=== PATIENT | female | born 1955 | race Hispanic/Latino ===

== ENCOUNTER 2019-07-15 16:22 | Emergency (ER) | payer OTHER ==
[2019-07-15] MEDS ORDERED: SODIUM CHLORIDE 0.9% 1000ML 1,000 ML IV ONE (16:34)
[2019-07-15] MEDS ORDERED: ONDANSETRON HCL 4 MG/2 ML VIAL ONE (16:49)
[2019-07-15] MEDS ORDERED: KETOROLAC TROMETHAMINE 15MG/ML ONE (16:50)
[2019-07-15 16:53] LABS: BASOPHILS % (AUTO) 0.1 % (0.0-5.0); HEMATOCRIT 43.1 % (36-48); LYMPHOCYTES % (AUTO) 5.1 % (21.0-51.0); MEAN CORPUSCULAR HEMOGLOBIN 29.3 pg (27.0-33.0); MEAN CORPUSCULAR HGB CONC 32.9 g/dL (32.0-36.0); MEAN CORPUSCULAR VOLUME 88.9 fL (79-99); NEUTROPHILS % (AUTO) 90.5 % (40.0-77.0); PLATELET COUNT (AUTO) 235 K/uL (130-400); RED BLOOD CELL COUNT(AUTO) 4.85 MIL/uL (4.00-5.50); RED CELL DISTRIBUTION WIDTH 12.1 % (11.0-15.5)
[2019-07-15 16:54] LABS: APPEARANCE,URINE Clear (CLEAR); BILIRUBIN,URINE Negative (NEGATIVE); COLOR,URINE Yellow (YELLOW); GLUCOSE, URINE (UA) >=1000 mg/dL (NEGATIVE); KETONES,URINE 40 mg/dL (NEGATIVE); LEUKOCYTE ESTERASE ,URINE Negative (NEGATIVE); NITRATE,URINE Positive (NEGATIVE); OCCULT BLOOD,URINE Moderate (NEGATIVE); PH,URINE 5.5 (5.0-8.0); PROTEIN,URINE POS 1+ mg/dL (NEGATIVE)
[2019-07-15 17:05] LABS: POTASSIUM 4.2 mmol/L (3.5-5.1)
[2019-07-15 17:06] LABS: BACTERIA,URINE Many /HPF (None Seen); RBC,URINE None Seen /HPF (0-1)
[2019-07-15 17:08] LABS: INR 0.98 (0.85-1.15); PARTIAL THROMBOPLASTIN TIME 30.8 SEC (26.3-35.5); PROTHROMBIN TIME 10.3 SEC (9.6-11.6)
[2019-07-15 17:10] LABS: ALBUMIN 3.6 g/dL (3.5-5.0); BILIRUBIN,TOTAL 1.7 mg/dL (0.2-1.0); TOTAL PROTEIN, SERUM 7.9 g/dL (6.0-8.3)
[2019-07-15] MEDS ORDERED: CEFTRIAXONE SODIUM 1 GM ONE (17:27)
[2019-07-15] MEDS ORDERED: SODIUM CHLORIDE 0.9% 50 ML IV ONE (17:28)
[2019-07-17] MEDS ORDERED: ONDA-104 PO (16:33)
[2019-07-17] MEDS ORDERED: METF-444 PO (16:33)
[2019-07-17] MEDS ORDERED: LISI10TA7 PO (16:33)
[2019-07-17] MEDS ORDERED: CEFU500T67 PO (16:33)
[2019-07-20] MEDS ORDERED: METF-444 PO (12:34)
[2019-07-20] MEDS ORDERED: LISI10TA7 PO (12:34)
== END 2019-07-15 18:32 | disposition home or self-care (01) ==
LOC: EDH 16:22
DX: N10 Acute pyelonephritis (principal); E11.9 Type 2 diabetes mellitus without complications; I10 Essential (primary) hypertension
CPT/HCPCS: 36415; 74176; 80053; 81001; 83690; 85025; 85610; 85730; 93005; 96374; 96375; 99285; J0696; J1885; J2405; J7030

== ENCOUNTER 2019-11-19 05:24 | Inpatient (IN) | payer OTHER ==
[~2019-11-19] VITALS: Ht 165.1 cm; Wt 110.0 kg
[~2019-11-19 05:24] MED LIST: LISI10TA7 PO; METF-444 PO
[2019-11-19 05:51] LABS: APPEARANCE,URINE Clear (CLEAR); BILIRUBIN,URINE Negative (NEGATIVE); COLOR,URINE Yellow (YELLOW); GLUCOSE, URINE (UA) Negative (NEGATIVE); KETONES,URINE Negative (NEGATIVE); LEUKOCYTE ESTERASE ,URINE Trace (NEGATIVE); NITRATE,URINE Negative (NEGATIVE); OCCULT BLOOD,URINE Nonhemolyzed Trace (NEGATIVE); PROTEIN,URINE Negative (NEGATIVE); UROBILINOGEN,URINE 0.2 mg/dL (0.2-1.0)
[2019-11-19 05:57] LABS: BACTERIA,URINE Rare /HPF (None Seen); RBC,URINE 0-1 /HPF (0-1); SQUAMOUS EPITHELIAL CELL,UR Few /HPF (0-2); WBC,URINE 0-1 /HPF (0-1)
[2019-11-19] MEDS ORDERED: IBUPROFEN 600 MG TABLET ONE (06:21)
[2019-11-19 06:45] LABS: BASOPHILS % (AUTO) 0.2 % (0.0-5.0); EOSINOPHILS % (AUTO) 0.8 % (0.0-8.0); HEMATOCRIT 39.3 % (36-48); LYMPHOCYTES % (AUTO) 8.1 % (21.0-51.0); MEAN CORPUSCULAR HEMOGLOBIN 30.2 pg (27.0-33.0); MEAN CORPUSCULAR HGB CONC 33.6 g/dL (32.0-36.0); MEAN CORPUSCULAR VOLUME 89.9 fL (79-99); MONOCYTES % (AUTO) 4.4 % (3.0-13.0); PLATELET COUNT (AUTO) 189 K/uL (130-400); RED BLOOD CELL COUNT(AUTO) 4.37 MIL/uL (4.00-5.50); RED CELL DISTRIBUTION WIDTH 12.8 % (11.0-15.5); WHITE BLOOD COUNT (AUTO) 13.5 K/uL (4.8-10.8)
[2019-11-19 06:52] LABS: CREATININE 0.9 mg/dL (0.5-1.5); POTASSIUM 4.4 mmol/L (3.5-5.1)
[2019-11-19 06:58] LABS: ALBUMIN 3.6 g/dL (3.5-5.0); BILIRUBIN,TOTAL 1.3 mg/dL (0.2-1.0); TOTAL PROTEIN, SERUM 7.2 g/dL (6.0-8.3)
[2019-11-19] MEDS ORDERED: SODIUM CHLORIDE 0.9% 100 ML IV ONE (07:15)
[2019-11-19] MEDS ORDERED: CEFTRIAXONE SODIUM 1 GM ONE (07:15)
[2019-11-19] MEDS ORDERED: SODIUM CHLORIDE 0.9% 1000ML 1,000 ML IV ONE ×2 (07:16→10:54)
[2019-11-19] MEDS: SODIUM CHLORIDE 0.9% 1000ML 1,000 ML IV SCH (09:59)
[2019-11-19] MEDS ORDERED: ACETAMINOPHEN 325 MG TAB PO PRN ×2 (10:00)
[2019-11-19] MEDS ORDERED: ONDANSETRON HCL 4 MG/2 ML VIAL IV PRN (10:00)
[2019-11-19] MEDS: CEFTRIAXONE SODIUM 1 GM IV SCH ×2 (10:00→20:14)
[2019-11-19] MEDS ORDERED: ENOXAPARIN SODIUM 30 MG/0.3 ML SQ ONE (10:54)
[2019-11-19 12:00] VITALS: BP 146/77
--- NOTE | 2019-11-19 12:00 | NUR ---
RECEIVED PATIENT FROM ER TRANSPORTED BY KIMBERLI ESPINOZA. PATIENT IS A/OX 3. FULL ASSESSMENT DONE. SHE DENIES SOB. PATIENT WILL BE KEPT ON ENHANCED PRECAUTIONS AT THIS TIME PENDING RAPID COVID-19 RESULTS. CALL LIGHT WITHIN REACH. INSTRUCTED TO CALL FOR ASSISTANCE. PATIENT VERBALIZED UNDERSTANDING.
[2019-11-19 16:00] VITALS: BP 145/70
[2019-11-19] MEDS ORDERED: METF-446 PO (16:27)
[2019-11-19] MEDS ORDERED: METF-444 PO (16:27)
--- NOTE | 2019-11-19 18:00 | NUR ---
TRANSFERRED PATIENT TO [facility] VIA WHEELCHAIR. PATIENT IS NEGATIVE FOR COVID-19. SBAR REPORT HANDED TO EPI ROBLEDO.
[2019-11-19 18:15] VITALS: BP 145/76
[2019-11-19 20:07] VITALS: BP 141/74
[2019-11-19] MEDS: FAMOTIDINE/PF 20 MG/2 ML VIAL IV SCH (20:14)
[2019-11-19 23:34] VITALS: BP 130/72
--- NOTE | 2019-11-20 03:15 | NUR ---
PATIENT A/OX3. AFEBRILE. DENIES DYSURIA OR FREQUENT URINATION. NO S/S OF RESP DISTRESS. TOLERATING IV ANTIBIOTICS.
[2019-11-20 03:40] VITALS: BP 148/75
[2019-11-20 04:34] LABS: BASOPHILS % (AUTO) 0.3 % (0.0-5.0); EOSINOPHILS % (AUTO) 2.8 % (0.0-8.0); HEMATOCRIT 36.9 % (36-48); LYMPHOCYTES % (AUTO) 36.5 % (21.0-51.0); MEAN CORPUSCULAR HEMOGLOBIN 29.7 pg (27.0-33.0); MEAN CORPUSCULAR HGB CONC 32.5 g/dL (32.0-36.0); MEAN CORPUSCULAR VOLUME 91.3 fL (79-99); MONOCYTES % (AUTO) 10.8 % (3.0-13.0); NEUTROPHILS % (AUTO) 49.4 % (40.0-77.0); PLATELET COUNT (AUTO) 182 K/uL (130-400); RED BLOOD CELL COUNT(AUTO) 4.04 MIL/uL (4.00-5.50); RED CELL DISTRIBUTION WIDTH 12.8 % (11.0-15.5); WHITE BLOOD COUNT (AUTO) 6.4 K/uL (4.8-10.8)
[2019-11-20] MEDS: SODIUM CHLORIDE 0.9% 1000ML 1,000 ML IV SCH (06:15)
[2019-11-20 08:00] VITALS: BP 129/51
[2019-11-20] MEDS: FAMOTIDINE/PF 20 MG/2 ML VIAL IV SCH ×2 (09:19→19:56)
[2019-11-20] MEDS: LISINOPRIL 10 MG TABLET PO SCH (09:20)
[2019-11-20] MEDS: METFORMIN HCL 500 MG TABLET PO SCH (09:20)
[2019-11-20] MEDS: ENOXAPARIN SODIUM 30 MG/0.3 ML SQ SCH (09:21)
--- NOTE | 2019-11-20 11:12 | NUR ---
cm note patient states resides at home with spouse, . independent with adls and ambulation, no dme. no services. drives works parttime. dc plan is back to home [place] no dc needs. Addendum: 11/20/19 at 1116 by THOMAS CONNOLLY CM Amended: Links added.
[2019-11-20 11:43] VITALS: BP 148/89
[2019-11-20] MEDS: CEFTRIAXONE SODIUM 1 GM IVP SCH (15:07)
[2019-11-20 16:00] VITALS: BP 142/83
[2019-11-20] MEDS ORDERED: METFORMIN HCL 500 MG TABLET PO SCH (18:00)
[2019-11-20 20:04] VITALS: BP 156/99
[2019-11-20 23:33] VITALS: BP 134/85
--- NOTE | 2019-11-21 03:48 | NUR ---
PATIENT A/OX3. REMAINS AFEBRILE. DENIES DYSURIA OR FREQUENT URINATION. NO SIGNS OF DISTRESS. TOLERATING IV ANTIBIOTICS.
[2019-11-21 04:02] VITALS: BP 135/76
[2019-11-21 04:50] LABS: BASOPHILS % (AUTO) 0.4 % (0.0-5.0); EOSINOPHILS % (AUTO) 2.8 % (0.0-8.0); HEMATOCRIT 39.3 % (36-48); LYMPHOCYTES % (AUTO) 36.7 % (21.0-51.0); MEAN CORPUSCULAR HEMOGLOBIN 29.5 pg (27.0-33.0); MEAN CORPUSCULAR HGB CONC 32.8 g/dL (32.0-36.0); MEAN CORPUSCULAR VOLUME 89.9 fL (79-99); PLATELET COUNT (AUTO) 221 K/uL (130-400); RED BLOOD CELL COUNT(AUTO) 4.37 MIL/uL (4.00-5.50); RED CELL DISTRIBUTION WIDTH 12.5 % (11.0-15.5); WHITE BLOOD COUNT (AUTO) 6.8 K/uL (4.8-10.8)
[2019-11-21 05:23] LABS: ALBUMIN 3.4 g/dL (3.5-5.0); BILIRUBIN,TOTAL 0.9 mg/dL (0.2-1.0); CREATININE 0.9 mg/dL (0.5-1.5); POTASSIUM 3.7 mmol/L (3.5-5.1)
[2019-11-21 07:30] VITALS: BP 125/78
[2019-11-21] MEDS ORDERED: CEFD300C3 PO (08:37)
[2019-11-21] MEDS: METFORMIN HCL 500 MG TABLET PO SCH (08:51)
[2019-11-21] MEDS: CEFTRIAXONE SODIUM 1 GM IVP SCH (08:52)
[2019-11-21] MEDS: FAMOTIDINE/PF 20 MG/2 ML VIAL IV SCH (08:52)
[2019-11-21] MEDS: LISINOPRIL 10 MG TABLET PO SCH (08:52)
[2019-11-21] MEDS: ENOXAPARIN SODIUM 30 MG/0.3 ML SQ SCH (08:52)
[2019-11-21] MEDS ORDERED: CEFTRIAXONE SODIUM 1 GM IVP SCH (09:00)
--- NOTE | 2019-11-21 10:45 | NUR ---
DISCHARGE DISCHARGE INSTRUCTIONS GIVEN TO PATIENT, VERBALIZED UNDERSTANDING. APPOINTMENT SET UP FOR FOLLOW UP WITH DR WILEY. PRESCRIPTION FOR ANTIBIOTIC SENT TO [facility]. IV REMOVED. TELEPAK DISCONTINUED.
== END 2019-11-21 11:33 | disposition home or self-care (01) | DRG 690 ==
LOC: EDH 05:24 → 2DH 09:59 → 4BH 18:10
PROVIDERS: ADMIT Hospitalist; ATTEND Hospitalist
DX: N39.0 Urinary tract infection, site not specified (principal); N17.9 Acute kidney failure, unspecified; E86.1 Hypovolemia; E11.9 Type 2 diabetes mellitus without complications; Z20.828 Contact with and (suspected) exposure to other viral communicable diseases; I10 Essential (primary) hypertension; R31.9 Hematuria, unspecified; Z80.8 Family history of malignant neoplasm of other organs or systems; Z87.440 Personal history of urinary (tract) infections; Z90.710 Acquired absence of both cervix and uterus
CPT/HCPCS: 36415; 71045; 76770; 80053; 81001; 82550; 82948; 83605; 84145; 84484; 85025; 87040; 87077; 87088; 87186; 87486; 87581; 87633; 87635; 87798; 87804; 93005; G0378; J0696; J1650; J3490; J7030

== ENCOUNTER → 2020-10-05 | Outpatient (CLI) | payer BC ==
[~2020-10-05] MED LIST changes: +CEFD300C3 PO; +LISI10TA24 PO; -LISI10TA7 PO; +METF-446 PO
== END | disposition home or self-care (01) ==
LOC: RAH 09:25
PROVIDERS: ATTEND Family Medicine
DX: Z12.31 Encounter for screening mammogram for malignant neoplasm of breast (principal); Z00.01 Encounter for general adult medical examination with abnormal findings
CPT/HCPCS: 77067

== ENCOUNTER → 2023-10-13 | Outpatient (CLI) | payer MEDICARE | END | disposition home or self-care (01) | LOC: RAH 08:10 | PROVIDERS: ATTEND Family Medicine | DX: Z12.31 Encounter for screening mammogram for malignant neoplasm of breast (principal) | CPT/HCPCS: 77067 ==